=== PATIENT | male | born 1945 | race Caucasian/White ===

== ENCOUNTER → 2017-05-08 | Emergency (ER) | payer OTHER ==
[~2017-05-08] VITALS: Ht 182.9 cm; Wt 98.0 kg
[~2017-05-08] MED LIST: ASPIR-TRIN325 MG; FORTAMET1000 MG; TRILIPIX135 MG
== END | disposition home or self-care (01) ==
LOC: ER 01:22
DX: I10 Essential (primary) hypertension (principal)

== ENCOUNTER 2017-09-20 18:24 | Outpatient (CLI) | payer OTHER | END 2017-09-20 19:00 | disposition home or self-care (01) | LOC: RAD 18:24 | DX: N20.9 Urinary calculus, unspecified (principal) ==

== ENCOUNTER 2017-10-09 06:00 | Day surgery (SDC) | payer OTHER ==
[~2017-10-09 06:00] MED LIST changes: +AVAPRO150 MG PO; +GLIPIZIDE XL2.5 MG PO; +[UNRECOGNIZED DRUG - OTHER] PO
== END 2017-10-09 14:00 | disposition home or self-care (01) ==
LOC: CIR.AMB 06:00
DX: N20.0 Calculus of kidney (principal); N20.1 Calculus of ureter

== ENCOUNTER 2017-10-14 09:53 | Outpatient (CLI) | payer OTHER | END 2017-10-14 10:03 | disposition home or self-care (01) | LOC: RAD 501 09:53 | DX: N20.1 Calculus of ureter (principal) ==

== ENCOUNTER 2018-03-21 15:59 | Outpatient (CLI) | payer OTHER ==
[2018-03-22] MEDS ORDERED: CLONAZEPAM1 MG (00:10)
[2018-03-22] MEDS ORDERED: CEFUROXIME500 MG PO (06:21)
== END 2018-03-21 16:06 | disposition home or self-care (01) ==
LOC: TOM 15:59
DX: K57.20 Diverticulitis of large intestine with perforation and abscess without bleeding (principal); N20.0 Calculus of kidney; E11.21 Type 2 diabetes mellitus with diabetic nephropathy

== ENCOUNTER 2018-03-21 23:57 | Emergency (ER) | payer OTHER ==
[~2018-03-21] VITALS: Ht 185.4 cm; Wt 99.3 kg
[2018-03-22] MEDS ORDERED: CLONAZEPAM1 MG (00:10)
[2018-03-22] MEDS ORDERED: CEFUROXIME500 MG PO (06:21)
== END 2018-03-22 06:30 | disposition home or self-care (01) ==
LOC: ER 23:57
DX: R10.31 Right lower quadrant pain (principal); R50.9 Fever, unspecified; N39.0 Urinary tract infection, site not specified; B96.29 Other Escherichia coli [E. coli] as the cause of diseases classified elsewhere

== ENCOUNTER 2018-03-25 12:58 | Outpatient (CLI) | payer OTHER ==
[~2018-03-25 12:58] MED LIST changes: +CEFUROXIME500 MG PO; +CLONAZEPAM1 MG
[2018-03-25] MEDS ORDERED: LEVAQUIN500 MG PO (15:16)
[2018-03-25] MEDS ORDERED: SYNTHROID75 MCG PO (15:23)
[2018-03-26] MEDS ORDERED: CIALIS5 MG PO (08:30)
== END 2018-03-25 13:29 | disposition home or self-care (01) ==
LOC: LAB 12:58
DX: N20.0 Calculus of kidney (principal); N30.00 Acute cystitis without hematuria; I10 Essential (primary) hypertension; Z01.810 Encounter for preprocedural cardiovascular examination; Z01.812 Encounter for preprocedural laboratory examination; Z01.818 Encounter for other preprocedural examination

== ENCOUNTER 2018-03-25 16:54 | Inpatient (IN) | payer OTHER ==
[~2018-03-25 16:54] MED LIST changes: +LEVAQUIN500 MG PO; +SYNTHROID75 MCG PO
[2018-03-26] MEDS ORDERED: CIALIS5 MG PO (08:30)
== END 2018-03-28 10:23 | disposition home or self-care (01) | DRG 660 ==
LOC: SURH 16:54 → O/R 20:48 → SURG 20:48
PROVIDERS: ADMIT Urology
PROC: 0TJB8ZZ Inspection of Bladder, Via Natural or Artificial Opening Endoscopic (ICD-10-PCS; 2018-03-25)
PROC: BT1DZZZ Fluoroscopy of Right Kidney, Ureter and Bladder (ICD-10-PCS; 2018-03-25)
PROC: 0T768DZ Dilation of Right Ureter with Intraluminal Device, Via Natural or Artificial Opening Endoscopic (ICD-10-PCS; principal; 2018-03-25 17:00)
DX: N20.1 Calculus of ureter (principal); N17.9 Acute kidney failure, unspecified; N10 Acute pyelonephritis; N20.0 Calculus of kidney; E11.9 Type 2 diabetes mellitus without complications; Z79.4 Long term (current) use of insulin

== ENCOUNTER 2018-04-15 13:26 | Outpatient (CLI) | payer OTHER ==
[~2018-04-15 13:26] MED LIST changes: +CIALIS5 MG PO
== END 2018-04-15 14:17 | disposition home or self-care (01) ==
LOC: RAD 13:26
DX: J18.8 Other pneumonia, unspecified organism (principal)

== ENCOUNTER → 2018-04-21 | Outpatient (CLI) | payer OTHER | END | disposition home or self-care (01) | LOC: RAD 501 08:30 | DX: N20.0 Calculus of kidney (principal); E11.21 Type 2 diabetes mellitus with diabetic nephropathy ==

== ENCOUNTER 2018-04-27 14:10 | Outpatient (CLI) | payer OTHER | END 2018-04-27 14:33 | disposition home or self-care (01) | LOC: RAD 14:10 | DX: N20.0 Calculus of kidney (principal) ==

== ENCOUNTER 2018-05-10 13:46 | Outpatient (CLI) | payer OTHER | END 2018-05-10 15:00 | disposition home or self-care (01) | LOC: RAD 13:46 | DX: N20.0 Calculus of kidney (principal) ==

== ENCOUNTER → 2018-08-13 16:59 | Outpatient (CLI) | payer OTHER | END | disposition home or self-care (01) | LOC: LAB 16:59 | DX: N39.0 Urinary tract infection, site not specified (principal); N20.0 Calculus of kidney ==

== ENCOUNTER → 2019-01-10 16:15 | Outpatient (CLI) | payer OTHER | END | disposition home or self-care (01) | LOC: RAD 16:15 | DX: J12.2 Parainfluenza virus pneumonia (principal) ==

== ENCOUNTER → 2019-03-20 | Outpatient (CLI) | payer OTHER | END | disposition home or self-care (01) | LOC: RAD 13:09 | DX: M19.90 Unspecified osteoarthritis, unspecified site (principal); N22 Calculus of urinary tract in diseases classified elsewhere ==

== ENCOUNTER → 2019-04-10 | Outpatient (CLI) | payer OTHER | END | disposition home or self-care (01) | LOC: RAD 16:17 | DX: M10.9 Gout, unspecified (principal) ==

== ENCOUNTER → 2019-08-13 | Outpatient (CLI) | payer OTHER | END | disposition home or self-care (01) | LOC: RAD 11:41 | DX: J18.0 Bronchopneumonia, unspecified organism (principal) ==

== ENCOUNTER → 2019-09-21 18:09 | Outpatient (CLI) | payer OTHER | END | disposition home or self-care (01) | LOC: RAD 18:09 | DX: N20.0 Calculus of kidney (principal) ==

== ENCOUNTER 2020-05-06 13:18 | Outpatient (CLI) | payer OTHER | END 2020-05-06 13:29 | disposition home or self-care (01) | LOC: RAD 13:18 | DX: N20.0 Calculus of kidney (principal) ==

== ENCOUNTER 2020-06-02 15:10 | Outpatient (CLI) | payer OTHER | END 2020-06-02 15:26 | disposition home or self-care (01) | LOC: RAD 15:10 | DX: M25.59 Pain in other specified joint (principal); S59.901A Unspecified injury of right elbow, initial encounter; R07.89 Other chest pain; M54.2 Cervicalgia; Y99.8 Other external cause status ==

== ENCOUNTER 2020-07-27 14:19 | Outpatient (CLI) | payer OTHER | END 2020-07-27 14:25 | disposition home or self-care (01) | LOC: RAD 14:19 | DX: G56.02 Carpal tunnel syndrome, left upper limb (principal) ==

== ENCOUNTER → 2020-12-27 | Outpatient (CLI) | payer OTHER | END | disposition home or self-care (01) | LOC: RAD 15:41 | DX: M79.642 Pain in left hand (principal); M79.641 Pain in right hand; M13.80 Other specified arthritis, unspecified site ==

== ENCOUNTER 2021-01-11 14:44 | Outpatient (CLI) | payer OTHER | END 2021-01-11 15:58 | disposition home or self-care (01) | LOC: EKG 14:44 | DX: I10 Essential (primary) hypertension (principal); M10.00 Idiopathic gout, unspecified site; M10.49 Other secondary gout, multiple sites; E11.9 Type 2 diabetes mellitus without complications; E03.8 Other specified hypothyroidism ==

== ENCOUNTER 2023-01-14 08:43 | Outpatient (CLI) | payer OTHER | END 2023-01-14 08:54 | disposition home or self-care (01) | LOC: SONOGRAMA 08:43 | PROVIDERS: ATTEND Radiology Diagnostic Radiology | DX: N20.0 Calculus of kidney (principal); Z91.013 Allergy to seafood ==

== ENCOUNTER 2024-10-23 11:16 | Outpatient (CLI) | payer OTHER | END 2024-10-23 11:19 | disposition home or self-care (01) | LOC: RAD 11:16 | PROVIDERS: ATTEND Internal Medicine | DX: E11.65 Type 2 diabetes mellitus with hyperglycemia (principal); K76.0 Fatty (change of) liver, not elsewhere classified; K56.600 Partial intestinal obstruction, unspecified as to cause ==